=== PATIENT | female | born 1985 | race Caucasian/White ===

== ENCOUNTER → 2017-03-09 | Outpatient (CLI) | payer OTHER ==
[~2017-03-09] MED LIST: ENOX30SY4 SQ; HEPA500024 SQ; PREN1TAB56 PO
== END | disposition home or self-care (01) ==
LOC: CFH 14:10
PROVIDERS: ATTEND Clinical Nurse Specialist Women's Health
DX: N63 Unspecified lump in breast (principal)
CPT/HCPCS: 76641; G0204